=== PATIENT | male | born 2000 | race African-American/Black ===

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

== ENCOUNTER 2018-06-09 20:29 | Emergency (ER) | payer MEDICAID, OTHER ==
[2018-06-09 20:47] VITALS: BP 114/69
--- NOTE | 2018-06-09 21:44 | UC ---
Shoulder Pain HPI - HPI Summary HPI Summary: Patient is a 17-year-old male presenting to the with complaint of right collarbone injury after a hit this afternoon and rugby. He endorses pain to the distal aspect of the collarbone, however denies any pain to the humerus. Endorses pain with abduction past 90 of the shoulder joint. - History of Current Complaint Chief Complaint: UCGeneralIllness Stated Complaint: COLLAR BONE INJURY Time Seen by Provider: 06/09/18 20:33 Hx Obtained From: Patient Onset/Duration: Sudden Onset Timing: Constant Severity Initially: Moderate Severity Currently: Moderate Location Of Pain: Is Discrete @ - right side collar bone Pain Intensity: 8 Pain Scale Used: 0-10 Numeric Character: Aching Aggravating Factor(s): Movement Alleviating Factor(s): Rest, Ice Associated Signs And Symptoms: Positive: Negative Related History: Dominant Hand Right - Risk Factors Non-Orthopedic Risk Factor: Negative DVT Risk Factors: Negative Septic Arthritis Risk Factor: Negative - Allergies/Home Medications Allergies/Adverse Reactions: Allergies Allergy/AdvReac Type Severity Reaction Status Date / Time metoclopramide Allergy See Comment Verified 06/09/18 20:50 Home Medications: Home Medications metFORMIN* [Glucophage 500 MG TAB *] 500 mg PO BID 06/09/18 [History Confirmed 06/09/18] PMH/Surg Hx/FS Hx/Imm Hx Previously Healthy: Yes - Surgical History Surgical History: None - Family History Known Family History: Positive: None, Unknown - LEVEL 5 CAVEAT - PT IS UNCOOPERATIVE Family History: No FHx of Ebola - Social History Occupation: Unemployed, Student Lives: Dormitory/Roommates Alcohol Use: None Substance Use Type: None Smoking Status (MU): Never Smoked Tobacco Review of Systems Constitutional: Negative Skin: Negative Respiratory: Negative Cardiovascular: Negative Motor: Decreased ROM Neurovascular: Negative Musculoskeletal: Arthralgia Neurological: Negative Is Patient Immunocompromised?: No All Other Systems Reviewed And Are Negative: Yes Physical Exam Triage Information Reviewed: Yes Appearance: Well-Appearing, Well-Nourished Vital Signs: Initial Vital Signs Temp 99.1 F 06/09/18 20:41 Pulse 83 06/09/18 20:41 Resp 16 06/09/18 20:41 BP 114/69 06/09/18 20:41 Pulse Ox 100 06/09/18 20:41 Vital Signs Reviewed: Yes Eye Exam: Normal Eyes: Positive: Conjunctiva Clear Neck exam: Normal Neck: Positive: Supple, Nontender, No Lymphadenopathy Respiratory Exam: Normal Respiratory: Positive: Lungs clear Cardiovascular Exam: Normal Cardiovascular: Positive: RRR, No Murmur Musculoskeletal: Positive: ROM Limited @ - past 90 abduction of the R shoulder Psychological Exam: Normal Skin Exam: Normal Shoulder Course/Dx - Course Course Of Treatment: Xray of the collarbone obtained which shows no acute findings. Patient has full range of motion, however with pain past 90 of abduction. Symptoms are improved with abduction and internal rotation of the shoulder. There is no ecchymosis or obvious deformity. Denies any numbness or tingling. Good cap refill. Pulses +2 intact bilaterally. - Differential Dx/Diagnosis Provider Diagnoses: Rotator cuff injury; Contusion Discharge - Sign-Out/Discharge Documenting (check all that apply): Patient Departure All imaging exams completed and their final reports reviewed: Yes - Discharge Plan Condition: Stable Disposition: HOME Patient Education Materials: Rotator Cuff Injury (ED), Contusion in Adults (ED) Forms: *Gen. Provider Communication Referrals: No Primary Care Phys,NOPCP [Primary Care Provider] - Additional Instructions: Your diagnosed with rotator cuff injury and contusion You may begin to feel better in a few days, however if symptoms persist past 3- 4 days, he should be re-seen Ibuprofen 600 mg 3 times daily Ice to the area over the next 2 days then move to heat Use heat just before you attempt to provide gentle motion exercises to promote healing - Billing Disposition and Condition Condition: STABLE Disposition: Home
--- NOTE | 2018-06-10 08:11 | RAD ---
Indication: RIGHT clavicle pain following injury playing rugby. Comparison: September 26, 2017 Technique: AP and cephalad oblique views RIGHT clavicle. Report: Negative for RIGHT clavicle fracture. Unremarkable sternoclavicular and acromioclavicular alignment in the AP and cephalad oblique projections. Unremarkable soft tissue contours. IMPRESSION: #. Negative exam. R0
== END 2018-06-09 21:25 | disposition home or self-care (01) ==
LOC: UCEAST 20:29
DX: S46.001A Unspecified injury of muscle(s) and tendon(s) of the rotator cuff of right shoulder, initial encounter (principal); S40.011A Contusion of right shoulder, initial encounter; Z88.8 Allergy status to other drugs, medicaments and biological substances; X58.XXXA Exposure to other specified factors, initial encounter; Y93.63 Activity, rugby; Y92.9 Unspecified place or not applicable
CPT/HCPCS: 99211; G0463